=== PATIENT | female | born 1990 | race Caucasian/White ===

== ENCOUNTER 2020-08-22 01:08 | Emergency (ER) | payer SELFPAY ==
[2020-08-22] MEDS ORDERED: Boostrix 0.5 ML (Tdap) VIAL ONE (01:27)
[2020-08-22] MEDS ORDERED: Lidocaine 1% (PF) 30 ML VIAL ONE (01:43)
[2020-08-22] MEDS ORDERED: Bacitracin 1 PK ONE (03:03)
--- NOTE | 2020-08-22 07:43 | RAD ---
EXAM: 3 views of the right hand COMPARISON: None HISTORY: Laceration to the hand with glass with a lot of blood loss. FINDINGS: 3 views of the hand shows no evidence of acute fracture or dislocation. No degenerative agnes nges are seen. Moderate dorsal soft tissue swelling is present. There is likely a laceration in this location. There is also soft tissue swelling of the thumb. No radiopaque foreign body is seen. IMPRESSION: No evidence of radiopaque foreign body or fracture
== END 2020-08-22 03:10 | disposition home or self-care (01) ==
LOC: ERS 01:08
DX: S61.411A Laceration without foreign body of right hand, initial encounter (principal); S61.011A Laceration without foreign body of right thumb without damage to nail, initial encounter; I10 Essential (primary) hypertension; Z23 Encounter for immunization; W25.XXXA Contact with sharp glass, initial encounter
CPT/HCPCS: 12002; 90471; 90715; J2001

== ENCOUNTER 2021-05-28 06:58 | Inpatient (IN) | payer OTHER, SELFPAY ==
[2021-05-28 07:19] LABS: #Basophils 0.1 thou/uL (0.0-0.2); #Eosinphils 0.1 thou/uL (0.0-0.7); #Lymphocytes 3.9 thou/uL (1.20-3.40); #Monocytes 0.7 thou/uL (0.11-0.59); %Basophils 1.1 % (0.0-1.0); %Lymphocytes 40.1 % (21.0-51.0); %Monocytes 7.4 % (0.0-10.0); %Neutrophils 50.4 % (42.0-75.0); Hemoglobin 13.5 g/dL (12.0-16.0); Mean Corpuscular HGB CONC 33.3 g/dL (32.0-36.0); Mean Corpuscular Hemoglobin 29.7 pg (27.0-31.0); Mean Corpuscular Volume 89.1 fL (78.0-98.0); Platelet Count 397 thou/uL (130-400); RBC Distribution Width 11.2 % (11.5-14.5); Red Blood Cell (RBC) Count 4.56 mill/uL (4.20-5.40); White Blood Cell (WBC) Count 9.8 thou/uL (4.8-10.8)
[2021-05-28 07:40] LABS: Acetaminophen Less than 6.0 mcg/mL (10.0-30.0); Alcohol Less than 10 mg/dL (Less than 10); Salicylate Less than 8.0 mg/dL (15.0-30.0)
[2021-05-28 07:47] LABS: ALT (SGPT) 34 U/L (8-55); AST (SGOT) 48 U/L (5-34); Albumin 4.1 g/dL (3.5-5.0); Alkaline Phosphatase 96 U/L (40-110); Anion Gap 16 mmol/L (10-20); BUN (Urea Nitrogen) 6 mg/dL (7.0-18.7); Bilirubin, Total 0.3 mg/dL (0.2-1.2); CK (CPK) 54 U/L (29-168); Calc. Creatinine Clearance 0 mL/min (70-130); Calcium 8.9 mg/dL (7.8-10.44); Carbon Dioxide 22 mmol/L (22-29); Chloride 101 mmol/L (98-107); Globulin 3.5 g/dL (2.4-3.5); Glucose 204 mg/dL (70-105); Lipase 38 U/L (8-78); Protein, Total 7.6 g/dL (6.0-8.3); Sodium 136 mmol/L (136-145)
[2021-05-28 07:50] LABS: Potassium 2.6 mmol/L (3.5-5.1)
[2021-05-28] MEDS ORDERED: Potassium Chloride 20 MEQ TAB ONE ×2 (07:57→13:08)
[2021-05-28] MEDS ORDERED: levETIRAcetam in NS 100 ML ONE (08:09)
[2021-05-28 08:16] LABS: BHCG - Serum Negative (NEGATIVE); Pregs Control Background? CLEAR/WHITE (CLR/WHITE); Pregs Control Bar Appear? YES (CONTROL BAR)
[2021-05-28 08:21] LABS: Bacteria/HPF None Seen HPF (None Seen); Bilirubin Negative (Negative); Blood, Urine Negative (Negative); Clarity Clear (Clear); Glucose, Urine (Dipstick) 300 mg/dL (Negative); Ketone, Urine Negative (Negative); Leukocyte 25 Leu/uL (Negative); Nitrite Negative (Negative); Protein, Urine (Dipstick) 20 mg/dL (Neg-Trace); RBC/HPF 0-3 HPF (0-3); Squamous Epithelial 0-3 HPF (0-3); Urobilinogen Normal mg/dL (Less than 2); pH, Urine 6.5 (5.0-9.0)
[2021-05-28 08:26] LABS: Amphetamine Not Detected (NotDetected); Barbiturates Screen Not Detected (NotDetected); Benzodiazepine Screen Detected (NotDetected); Cocaine Metabolite Screen Not Detected (NotDetected); Methadone Not Detected (NotDetected); Methamphetamine Not Detected (NotDetected); Opiate Screen Not Detected (NotDetected); Oxycodone Screen Not Detected (NotDetected); Phencyclidine (PCP) Not Detected (NotDetected); THC/Cannabinoid Screen Not Detected (NotDetected); Tricyclic Screen Not Detected (NotDetected)
[2021-05-28] MEDS ORDERED: Acetaminophen 325 MG TAB PO PRN (09:41)
[2021-05-28] MEDS ORDERED: Ondansetron ODT 4 MG TAB PO PRN (09:41)
[2021-05-28] MEDS ORDERED: Ibuprofen 800 MG TAB PO PRN (10:30)
[2021-05-28] MEDS ORDERED: Potassium Chloride 20 MEQ TAB PO SCH (10:45)
[2021-05-28 11:44] LABS: SARS-CoV-2 NAA Rapid Test Not Detected (NotDetected)
[2021-05-28] MEDS ORDERED: Nicotine 14 MG PATCH ONE (13:02)
[2021-05-28] MEDS: Nicotine 14 MG PATCH TD SCH (13:06)
[2021-05-28 14:38] LABS: Hemoglobin A1c 5.2 % (4.0-6.0)
[2021-05-28 16:43] VITALS: BMI 31.5
[2021-05-28] MEDS ORDERED: Prevnar 13-Val Conj/PF 0.5 ML SYRINGE IM ONE (17:15)
[2021-05-28 18:06] LABS: Anion Gap 13 mmol/L (10-20); BUN (Urea Nitrogen) 4 mg/dL (7.0-18.7); Calc. Creatinine Clearance 169 mL/min (70-130); Carbon Dioxide 25 mmol/L (22-29); Chloride 108 mmol/L (98-107); Glucose 126 mg/dL (70-105); Potassium 3.5 mmol/L (3.5-5.1); Sodium 142 mmol/L (136-145)
[2021-05-28 19:15] LABS: Magnesium 1.8 mg/dL (1.6-2.6)
[2021-05-28] MEDS: Amoxicillin/Potassium Clav 875 MG TAB PO SCH (21:27)
[2021-05-29 06:34] LABS: #Basophils 0.1 thou/uL (0.0-0.2); #Eosinphils 0.1 thou/uL (0.0-0.7); #Lymphocytes 1.7 thou/uL (1.20-3.40); #Monocytes 0.4 thou/uL (0.11-0.59); #Neutrophils 3.3 thou/uL (1.40-6.50); %Basophils 1.2 % (0.0-1.0); %Eosinophils 1.7 % (0.0-10.0); %Monocytes 7.9 % (0.0-10.0); %Neutrophils 59.2 % (42.0-75.0); Hemoglobin 12.5 g/dL (12.0-16.0); Mean Corpuscular HGB CONC 31.8 g/dL (32.0-36.0); Mean Corpuscular Hemoglobin 28.8 pg (27.0-31.0); Mean Corpuscular Volume 90.4 fL (78.0-98.0); Mean Platelet Volume 6.8 fL (7.4-10.4); Platelet Count 274 thou/uL (130-400); RBC Distribution Width 11.5 % (11.5-14.5); Red Blood Cell (RBC) Count 4.35 mill/uL (4.20-5.40); White Blood Cell (WBC) Count 5.6 thou/uL (4.8-10.8)
[2021-05-29 06:53] LABS: ALT (SGPT) 31 U/L (8-55); AST (SGOT) 31 U/L (5-34); Albumin 3.6 g/dL (3.5-5.0); Alkaline Phosphatase 82 U/L (40-110); Anion Gap 10 mmol/L (10-20); BUN (Urea Nitrogen) 5 mg/dL (7.0-18.7); Bilirubin, Total 0.5 mg/dL (0.2-1.2); Calc. Creatinine Clearance 174 mL/min (70-130); Calcium 9.1 mg/dL (7.8-10.44); Carbon Dioxide 26 mmol/L (22-29); Chloride 106 mmol/L (98-107); Globulin 2.6 g/dL (2.4-3.5); Glucose 99 mg/dL (70-105); Potassium 3.4 mmol/L (3.5-5.1); Protein, Total 6.2 g/dL (6.0-8.3); Sodium 139 mmol/L (136-145)
[2021-05-29 07:59] LABS: Iron 59 ug/dL (50-170); Iron Binding Capacity, Total 344 mcg/dL (265-497)
[2021-05-29] MEDS: Amoxicillin/Potassium Clav 875 MG TAB PO SCH (08:04)
[2021-05-29] MEDS ORDERED: levETIRAcetam 500 MG TAB PO SCH (09:00)
[2021-05-29] MEDS ORDERED: Enoxaparin Sodium 40 MG/0.4 ML SYRINGE SC SCH (09:00)
[2021-05-29] MEDS ORDERED: Potassium Chloride 20 MEQ TAB PO SCH (10:30)
[2021-05-29] MEDS: Nicotine 14 MG PATCH TD SCH (11:51)
[2021-05-29 11:52] VITALS: BP 146/83; TEMP 98.3
[2021-05-29] MEDS ORDERED: FLUoxetine HCl 20 MG CAP PO SCH (12:00)
[2021-05-30] MEDS ORDERED: FLUoxetine HCl 20 MG CAP PO SCH (09:00)
== END 2021-05-29 15:20 | disposition home or self-care (01) | DRG 100 ==
LOC: ERS 06:58 → EEVIPCON 06:58 → ERHOLD 09:08 → NEURO 16:13
PROVIDERS: ADMIT Student in an Organized Health Care Education/Training Program; ATTEND Student in an Organized Health Care Education/Training Program
DX: G40.909 Epilepsy, unspecified, not intractable, without status epilepticus (principal); G92.9 Unspecified toxic encephalopathy; T40.2X1A Poisoning by other opioids, accidental (unintentional), initial encounter; Z20.822 Contact with and (suspected) exposure to COVID-19; Z28.21 Immunization not carried out because of patient refusal; K04.7 Periapical abscess without sinus; D64.9 Anemia, unspecified; E87.6 Hypokalemia; R73.9 Hyperglycemia, unspecified; F17.210 Nicotine dependence, cigarettes, uncomplicated; F41.9 Anxiety disorder, unspecified; F10.10 Alcohol abuse, uncomplicated; F17.290 Nicotine dependence, other tobacco product, uncomplicated; Z83.3 Family history of diabetes mellitus; Z82.49 Family history of ischemic heart disease and other diseases of the circulatory system; Z91.19 Patient's noncompliance with other medical treatment and regimen; Z79.899 Other long term (current) drug therapy
CPT/HCPCS: 36415; 70450; 71045; 80053; 80306; 80307; 81003; 81015; 82140; 82550; 82607; 82746; 83036; 83540; 83550; 83690; 83735; 83880; 84146; 84443; 84484; 84703; 85025; 93005; J1650; J1953; U0002

== ENCOUNTER 2022-02-15 02:09 | Emergency (ER) | payer SELFPAY ==
[2022-02-15] MEDS ORDERED: Lidocaine 1% PF 5 ML VIAL ONE (03:20)
[2022-02-15] MEDS ORDERED: Bacitracin 1 PK ONE (03:41)
== END 2022-02-15 05:17 | disposition left against medical advice (07) ==
LOC: ERS 02:09
DX: S51.812A Laceration without foreign body of left forearm, initial encounter (principal); F10.129 Alcohol abuse with intoxication, unspecified; F41.9 Anxiety disorder, unspecified; R07.89 Other chest pain; I10 Essential (primary) hypertension; G40.909 Epilepsy, unspecified, not intractable, without status epilepticus; W25.XXXA Contact with sharp glass, initial encounter
CPT/HCPCS: 12002; 71045; 93005

== ENCOUNTER 2022-07-20 18:58 | Emergency (ER) | payer SELFPAY ==
[2022-07-20] MEDS ORDERED: Ketorolac Tromethamine 30 MG/ML VIAL ONE (19:47)
== END 2022-07-20 20:41 | disposition home or self-care (01) ==
LOC: ERS 18:58
DX: S83.91XA Sprain of unspecified site of right knee, initial encounter (principal); I10 Essential (primary) hypertension; G40.909 Epilepsy, unspecified, not intractable, without status epilepticus; X50.1XXA Overexertion from prolonged static or awkward postures, initial encounter; Y93.67 Activity, basketball; Z20.822 Contact with and (suspected) exposure to COVID-19
CPT/HCPCS: 96372; J1885; U0003; U0005

== ENCOUNTER 2024-04-11 18:18 | Emergency (ER) | payer OTHER ==
[2024-04-11 19:13] LABS: #Basophils 0.06 10x3/uL (0.0-0.2); %Basophils 0.7 % (0.0-1.0); %Lymphocytes 28.2 % (21.0-51.0); %Monocytes 5.8 % (0.0-10.0); %Neutrophils 63.6 % (42.0-75.0); Hematocrit 41.9 % (36.0-47.0); Hemoglobin 14.3 g/dL (12.0-16.0); Mean Corpuscular HGB CONC 34.1 g/dL (32.0-36.0); Mean Corpuscular Hemoglobin 30.4 pg (27.0-31.0); Mean Platelet Volume 9.3 fL (7.4-10.4); Platelet Count 318 10x3/uL (130-400); RBC Distribution Width 11.9 % (11.5-14.5); Red Blood Cell (RBC) Count 4.71 mill/uL (4.20-5.40)
[2024-04-11] MEDS ORDERED: Ondansetron PF 4 MG/2 ML Vial ONE (19:23)
[2024-04-11] MEDS ORDERED: Ketorolac Tromethamine 30 MG (1 mL) VIAL ONE (19:23)
[2024-04-11 19:31] LABS: Prothrombin Time 13.3 sec (12.0-14.7)
[2024-04-11 19:34] LABS: ALT (SGPT) 15 U/L (8-55); AST (SGOT) 24 U/L (5-34); Albumin 3.8 g/dL (3.5-5.0); Alkaline Phosphatase 96 U/L (40-110); Anion Gap 15 mmol/L (10-20); BUN (Urea Nitrogen) 22 mg/dL (7.0-18.7); Bilirubin, Total 0.4 mg/dL (0.2-1.2); Calc. Creatinine Clearance 0 mL/min (70-130); Calcium 9.8 mg/dL (7.8-10.44); Carbon Dioxide 24 mmol/L (22-29); Chloride 102 mmol/L (98-107); Estimated GFR 102; Globulin 4.3 g/dL (2.4-3.5); Glucose 126 mg/dL (70-105); Lipase 27 U/L (8-78); Magnesium 1.8 mg/dL (1.6-2.6); Potassium 4.2 mmol/L (3.5-5.1); Protein, Total 8.1 g/dL (6.0-8.3); Sodium 137 mmol/L (136-145)
[2024-04-11 19:37] LABS: Troponin I Less than 0.010 ng/mL (< 0.028)
[2024-04-11 19:41] LABS: BHCG - Serum Negative (NEGATIVE); Pregs Control Background? CLEAR/WHITE (CLR/WHITE); Pregs Control Bar Appear? YES (CONTROL BAR)
[2024-04-11 20:43] LABS: Bacteria/HPF None Seen HPF (None Seen); Bilirubin Negative (Negative); Blood, Urine Negative (Negative); CAUTI Indications for Culture Acute Hematuria; Clarity Turbid (Clear); Glucose, Urine (Dipstick) Normal (Negative); Ketone, Urine Trace mg/dL (Negative); Leukocyte 250 Leu/uL (Negative); Nitrite Negative (Negative); Protein, Urine (Dipstick) 10 mg/dL (Neg-Trace); RBC/HPF 0-3 HPF (0-3); Specific Gravity, Urine 1.025 (1.002-1.036); Urobilinogen Normal mg/dL (Less than 2)
[2024-04-11 20:44] LABS: Urine Culture Reflex No No
[2024-04-11] MEDS ORDERED: Ondansetron ODT 4 MG TAB ONE (21:34)
[2024-04-11] MEDS ORDERED: HYDROcodone/Acetaminophen 5/325 mg Tablet ONE (21:34)
== END 2024-04-11 21:46 | disposition home or self-care (01) ==
LOC: ERS 18:18
DX: K86.1 Other chronic pancreatitis (principal); I48.91 Unspecified atrial fibrillation; I10 Essential (primary) hypertension; F17.290 Nicotine dependence, other tobacco product, uncomplicated
CPT/HCPCS: 36415; 71045; 74176; 80053; 81001; 83605; 83690; 83735; 84145; 84443; 84484; 84703; 85025; 85610; 85730; 87040; 87086; 93005; 96374; 96375; J1885; J2405; Q0162